=== PATIENT | male | born 1945 | race Caucasian/White ===

== ENCOUNTER 2017-09-10 10:20 | Observation (INO) ==
--- NOTE | 2017-09-10 10:52 | Emergency Department Report ---
General Adult HPI - General Chief complaint: Fever Stated complaint: weak, diff urinating, cough Time Seen by Provider: 09/10/17 10:52 Source: patient, family Mode of arrival: ambulatory - History of Present Illness HPI narrative: Patient is a 72 year old male patient of Dr Car and Dr Garza who presents to the ED with a 2-3 day hx of not "feeling well and weakness " Patients recent history includes complaints of some generalized difficulty breathing in early August when he initially went to see his PCP. An xray was done at that time and patient was scheduled to see Dr Garza. Shortly after that initial appt with Dr Car, patient and his went on a trip to [place] and then [place] . Patient apparently saw Dr Car last week due to a cough and was given rx for inhaler. Patient continued to feel worse as the week went on with worsening coughing and the frequent need to void. Pt is normally very active and has been very sedentary the past few days due to weakness. Patient appears very weak, is moaning in bed with his eyes closed for the most of the time. Will open eyes and answer questions appropriately at times, but provides the majority of the information Patient complains of pain stating its exacerbation of chronic knee and back pain. Denies chest pain or abdominal pain. thinks that the patients fever has been present the past couple of days but has been subjective. reports recent cardiac exam by Dr Garza with the past week or so including a stress test which was ineffective due to knee pain. He then underwent an echocardiogram which his states was "okay". Patient is scheduled for a cardiac cath in 2 weeks due to concern for a blockage. Patient has had no prior stenting. Dr Garza did stop patients digoxin which he had been on for about 10 years because he felt it wasn't needed. According to patients , he had been started on dig with an episode of tachycardia and has never had the diagnosis of atrial fib according to patient or . It has just been a few days that he has stopped the dig. Patients fever upon arrival is 102. Reports productive cough and urinary sx. complaint: fever - Related Data Home Medications Medication Instructions Recorded Confirmed Escitalopram Oxalate [Lexapro] 10 mg PO DAILY #0 10/10/09 09/10/17 Tamsulosin HCl [Flomax] 1 tab PO HS #0 10/10/09 09/10/17 Multi-Vitamin Plain [Theragran] 1 tab PO DAILY 09/10/17 09/10/17 Allergies Allergy/AdvReac Type Severity Reaction Status Date / Time Cephalosporins Allergy Severe SWELLING Verified 02/21/11 06:50 Penicillins Allergy Severe SWELLING Verified 02/21/11 06:50 Review of Systems All systems: reviewed and negative except as stated Constitutional: Reports: as per HPI, fever, chills, weakness Eyes: Denies: eye pain, eye discharge ENT: Denies: ear pain, throat pain Cardiovascular: Reports: dyspnea on exertion. Denies: chest pain, palpitations , syncope Respiratory: Reports: as per HPI, cough, dyspnea. Denies: wheezes, hemoptysis Gastrointestinal: Reports: nausea, diarrhea. Denies: abdominal pain, vomiting Genitourinary: Reports: as per HPI, urgency, frequency Musculoskeletal: Reports: as per HPI, back pain, other (knee pain and back pain ; states is chronic ) Integumentary: Denies: rash Neurological: Denies: headache, paresthesias, confusion Psychiatric: Denies: anxiety, depression Hematological/Lymphatic: Denies: easy bleeding, easy bruising Allergic/Immunologic: Denies: facial swelling, urticaria PFSH Patient Stated Medical History Cardiac Arrhythmia Yes: TACHYCARDIA Physical Exam - Limitations Limitations: no limitations - General General appearance: alert, other (non toxic but does appear ill; keeping eyes closed during history but is oriented when verbalizes. ) - Normal Exams: Head:: Normocephalic without trauma Eyes:: Pupils are PERRLA w/ EOMI ENMT:: No facial trauma, nasal exudates, pharyngeal erythema Neck:: Full range of motion, without adenopathy Cardiovascular:: Regular rate and rhythm, without murmur or gallop, capillary refill Abdomen:: Bowel sounds positive, soft, non-tender, non-distended Lymphatic:: No lymphadenopathy, or lymphedema noted Integumentary:: No rashes, hives - Expanded Respiratory Exam Location: Left: decreased breath sounds (poor inspiratory effort ), Right: decreased breath sounds, Upper: decreased breath sounds, Lower: decreased breath sounds - Neurological Exam Neurological exam: Present: oriented X3, CN II-XII intact - Expanded Neurological Exam Patient oriented to: Present: person, place, time Speech: Present: fluid speech Motor strength - LUE: 5/5 Motor strength - RUE: 5/5 Motor strength - LLE: 5/5 Motor strength - RLE: 5/5 - Psychiatric Psychiatric exam: Present: other (withdrawn at times due to "feeling so awful" Is not confused and answers history appropriately ) Course Course Narrative: Patient continues to sleep most of ER stay. Arouses easily to name and is appropriate. No indications of sepsis at this time. VSS; lab work is unremarkable. XRay does indicate right perihilar infiltrate and patient is influenza B positive. Discussed admission with Dr Whipple who does accept patient . will start tamiflu but will hold antibiotics for now per her request. Patient is allergic to cephalosporins. - Consultations Consultation #1: Dr Whipple Time: 12:27 (will admit; outpatient ) Vital Signs Temperature 102 F H 09/10/17 10:25 Pulse Rate 90 09/10/17 10:25 Respiratory Rate 20 09/10/17 10:25 Blood Pressure 147/69 H 09/10/17 10:25 Pulse Oximetry 94 09/10/17 10:25 Temperature 102.3 F H 09/10/17 12:11 Pulse Rate 94 09/10/17 12:23 Respiratory Rate 23 09/10/17 12:23 Blood Pressure 130/72 09/10/17 12:23 Pulse Oximetry 92 09/10/17 12:23 Medical Decision Making - Lab Data Result diagrams: 09/10/17 11:18 09/10/17 11:18 Lab Results 09/10/17 09/10/17 09/10/17 Range/Units 11:12 11:18 11:18 WBC 8.9 (4.5-11.0) T/MM3 RBC 4.83 (4.50-5.90) M/MM3 Hgb 14.9 (13.5-17.5) GM/DL Hct 43.6 (41-53) % MCV 90.3 (80-100) UM3 MCH 30.8 (26-34) UUG MCHC 34.2 (31-37) GM/DL RDW Std Deviation 43.4 (36.9-50.2) FL Plt Count 219 (130-400) T/MM3 MPV 10.7 (9.4-12.4) UM3 Immature Gran % (Auto) 0.2 (0.0-0.5) % Neut % (Auto) 83.1 H (33-66) % Lymph % (Auto) 6.9 L (23-45) % [place] % (Auto) 9.4 H (0-9.0) % Eos % (Auto) 0.3 (0-4) % Baso % (Auto) 0.1 (0-2) % Neut # (Auto) 7.4 (1.8-7.7) T/MM3 Lymph # (Auto) 0.6 L (1-4.8) T/MM3 [place] # (Auto) 0.8 (0-0.8) T/MM3 Eos # (Auto) 0.0 (0-0.5) T/MM3 Baso # (Auto) 0.0 (0-0.2) T/MM3 Abs Immat Gran (auto) 0.02 (0.00-0.03) T/MM3 Turbidity < 20 (0-20) Sodium 139 (134-144) MEQ/L Potassium 4.3 (3.6-5) MEQ/L Chloride 100 (98-107) MEQ/L Carbon Dioxide 25 (22-30) MEQ/L Anion Gap 14 (5-15) MEQ/L BUN 15.0 (9-20) MG/DL Creatinine 1.1 (0.8-1.5) mg/dL GFR Calculation 65 BUN/Creatinine Ratio 14 (6-26) RATIO Glucose 104 (75-110) MG/DL Calculated Osmolality 269 (261-280) MOSM/KG Calcium 9.1 (8.4-10.2) MG/DL Total Bilirubin 0.50 (0.20-1.30) MG/DL Icterus Index < 2 (0-7) AST 32 (17-59) U/L ALT 30 (1-50) U/L Alkaline Phosphatase 102 (38-126) U/L Troponin I < 0.012 (0-0.12) ng/ml Total Protein 7.8 (6.3-8.2) g/dL Albumin 4.6 (3.5-5.0) g/dL Globulin 3.2 (2.4-3.6) G/DL Albumin/Globulin Ratio 1.4 (1.1-2.2) RATIO Plasma Lactate 1.8 (0.6-2.2) MMOL/L Procalcitonin NG/ML Specimen Hemolysis < 15 (0-25) Ur Collection Type Urine Color (YELLOW) Urine Clarity Urine pH (5.0-8.0) Ur Specific [place] (1.015-1.025) Urine Protein (NEGATIVE) Urine Glucose (UA) (NEGATIVE) Urine Ketones (NEGATIVE) Urine Occult Blood (NEGATIVE) Urine Nitrate (NEGATIVE) Urine Bilirubin (NEGATIVE) Urine Urobilinogen (NORMAL) EU/DL Ur Leukocyte Esterase (NEGATIVE) Urinalysis Comment Influenza Type A (PCR) Negative (Negative) Influenza Type B (PCR) Positive A* (Negative) 09/10/17 09/10/17 Range/Units 11:18 11:33 WBC (4.5-11.0) T/MM3 RBC (4.50-5.90) M/MM3 Hgb (13.5-17.5) GM/DL Hct (41-53) % MCV (80-100) UM3 MCH (26-34) UUG MCHC (31-37) GM/DL RDW Std Deviation (36.9-50.2) FL Plt Count (130-400) T/MM3 MPV (9.4-12.4) UM3 Immature Gran % (Auto) (0.0-0.5) % Neut % (Auto) (33-66) % Lymph % (Auto) (23-45) % [place] % (Auto) (0-9.0) % Eos % (Auto) (0-4) % Baso % (Auto) (0-2) % Neut # (Auto) (1.8-7.7) T/MM3 Lymph # (Auto) (1-4.8) T/MM3 [place] # (Auto) (0-0.8) T/MM3 Eos # (Auto) (0-0.5) T/MM3 Baso # (Auto) (0-0.2) T/MM3 Abs Immat Gran (auto) (0.00-0.03) T/MM3 Turbidity (0-20) Sodium (134-144) MEQ/L Potassium (3.6-5) MEQ/L Chloride (98-107) MEQ/L Carbon Dioxide (22-30) MEQ/L Anion Gap (5-15) MEQ/L BUN (9-20) MG/DL Creatinine (0.8-1.5) mg/dL GFR Calculation BUN/Creatinine Ratio (6-26) RATIO Glucose (75-110) MG/DL Calculated Osmolality (261-280) MOSM/KG Calcium (8.4-10.2) MG/DL Total Bilirubin (0.20-1.30) MG/DL Icterus Index (0-7) AST (17-59) U/L ALT (1-50) U/L Alkaline Phosphatase (38-126) U/L Troponin I (0-0.12) ng/ml Total Protein (6.3-8.2) g/dL Albumin (3.5-5.0) g/dL Globulin (2.4-3.6) G/DL Albumin/Globulin Ratio (1.1-2.2) RATIO Plasma Lactate (0.6-2.2) MMOL/L Procalcitonin 0.05 NG/ML Specimen Hemolysis (0-25) Ur Collection Type Urine, void-cc/notcc Urine Color Yellow (YELLOW) Urine Clarity Clear Urine pH 6.0 (5.0-8.0) Ur Specific [place] 1.010 L (1.015-1.025) Urine Protein Negative (NEGATIVE) Urine Glucose (UA) Negative (NEGATIVE) Urine Ketones Negative (NEGATIVE) Urine Occult Blood Negative (NEGATIVE) Urine Nitrate Negative (NEGATIVE) Urine Bilirubin Negative (NEGATIVE) Urine Urobilinogen 0.2 (NORMAL) EU/DL Ur Leukocyte Esterase Negative (NEGATIVE) Urinalysis Comment Microscopic not ind. Influenza Type A (PCR) (Negative) Influenza Type B (PCR) (Negative) Disposition Clinical Impression: Influenza B Pneumonia Qualifiers: Pneumonia type: due to unspecified organism Laterality: right Lung location: lower lobe of lung Qualified Code(s): J18.1 - Lobar pneumonia, unspecified organism Disposition: 02 Acute Care Hosp, Other Condition: Stable Prescriptions: No Action Tamsulosin HCl [Flomax] 1 tab PO HS #0 Multi-Vitamin Plain [Theragran] 1 tab PO DAILY Escitalopram Oxalate [Lexapro] 10 mg PO DAILY #0 Referrals: Evita Car MD [Family Provider] - Time of Disposition: 12:34 - Seen By: midlevel
[2017-09-10] MEDS ORDERED: SALINE FLUSH 10ml SYRINGE IVF PRN (10:53)
[2017-09-10] MEDS ORDERED: ACETAMINOPHEN 500 MG TABLET PO ONE (10:53)
[2017-09-10] MEDS ORDERED: NS 1,000 ML IV ONE (10:53)
--- NOTE | 2017-09-10 13:33 | History & Physical Report ---
History of Present Illness Date: 09/10/17 Chief complaint: fatigue, cough, fever HPI: Patient is a very pleasant 72-year-old male who presented to the emergency room today with fever, chills and cough. His symptoms started the morning of 09/08 with fatigue and generally just not feeling well. The following day he started coughing. Symptoms of body aches, headache cough and fever continue. He tested positive for influenza B in the emergency room. Remainder of his testing was essentially negative other than a possible right infiltrate seen on chest x- ray. He is generally very healthy and active and golfs and bowls regularly. Lives independently at home with his . Review of Systems All systems PM: 10-point ROS was reviewed, no additional remarkable complaints except (fever, cough, body aches, headache, fatigue) Past Medical History Medical History: Medical History (Last Updated 09/10/17 @ 13:59 by RICHARD Nuñez) Anxiety BPH (benign prostatic hyperplasia) Cervical stenosis of spine History of GI bleed Surgical History: vasectomy, cervical spine fusion (2009) Family History: Father- of lymphoma Mother- of complications secondary to back surgery Family History: As Above - Social History Smoking status: Former smoker (quit smoking pipe in 2009) Substance use type: does not use Housing: house Household members: spouse Current occupational status: retired Social history: PCP-Dr. Car Rattling Machine Tender-Dr. Rodriguez Medications Home Medications Medication Instructions Recorded Confirmed Type Escitalopram Oxalate [Lexapro] 10 mg PO DAILY #0 10/10/09 09/10/17 History Tamsulosin HCl [Flomax] 1 tab PO HS #0 10/10/09 09/10/17 History Multi-Vitamin Plain [Theragran] 1 tab PO DAILY 09/10/17 09/10/17 History Allergies Allergy/AdvReac Type Severity Reaction Status Date / Time Cephalosporins Allergy Severe SWELLING Verified 02/21/11 06:50 Penicillins Allergy Severe SWELLING Verified 02/21/11 06:50 Exam Vital Signs: Temperature 102.3 F H 09/10/17 12:11 Pulse Rate 94 09/10/17 12:23 Respiratory Rate 23 09/10/17 12:23 Blood Pressure 130/72 09/10/17 12:23 Pulse Oximetry 92 09/10/17 12:23 Height/Weight/BMI: Height 1.7 m Weight 82.8 kg Body Mass Index 28.5 - Constitutional Present: mild distress, well nourished, well developed - Routine HEENT Exam Head: Present: normocephalic, atraumatic Eye: Present: EOMI, PERRL ENT: Present: mucous membranes moist, oropharynx clear - Routine Neck Exam Present: supple. Absent: lymphadenopathy, thyromegaly - Routine Respiratory Exam Present: CTA bilaterally. Absent: wheezes - Routine Cardiovascular Exam Present: RRR, no murmur - Routine Abdominal Exam Present: soft, normoactive bowel sounds. Absent: tenderness, distended - Routine Extremities Exam Present: no edema, normal capillary refill - Routine Skin Exam Present: dry, warm - Routine Neurological Exam Present: alert, oriented X3, CN II-XII intact - Routine Psychiatric Exam Present: normal affect, cooperative Results - Labs CBC & Chem 7: 09/10/17 11:18 04 11:18 Labs: Laboratory Tests 09/10/17 09/10/17 11:18 11:18 Troponin I < 0.012 Plasma Lactate 1.8 Procalcitonin 0.05 Laboratory Tests 09/10/17 11:12 Influenza Type B (PCR) Positive A* - ECG Data Tracing #1 NSR - Imaging and Cardiology Chest x-ray Additional comments: possible R infiltrate Assessment and Plan (1) Influenza B Current visit: Yes Status: Acute Assessment and Plan: Assessment Fever, cough, weakness secondary to Influenza B Sepsis - SIRS: fever, tachycardia/tachypnea. Source: pulmonary/influenza B. Chronic conditions Cervical spine stenosis Anxiety History of GI bleed (2010) BPH Plan Admit, OBS IVF's - 1 L bolused in ER. Continue at 100cc's/hr Tamiflu initiated in ER. Continue. Start Duonebs and acapella for pulmonary toilet. Mucinex DM, Tessalon Perles for cough. Tylenol for fever/pain. [place] or morphine available PRN pain not controlled w/ Tylenol. (Avoid NSAIDs given h/o GI bleed) Hold off on antibiotics at this time as clinically his condition is consistent with influenzal infection. Repeat labs in a.m. Continue home meds of tamsulosin, , Lexapro and multivitamin. OT/PT to evaluate and treat CODE STATUS: Full code Care to return to Dr. Car upon dismissal DVT Prophylaxis: SCD's Resuscitation Status: Full Code - Physician Narrative Physician: Linda Whipple MD Narrative: Date: 09/10/17 Time: 1520 I have independently evaluated and examined this patient. I reviewed the chart, the patient's history, and the FLOOR SURFACER/PA's documented findings as above. We discussed and formulated the assessment and plan as above with additions as below: Mr. Montoya describes increasing nonproductive cough with fever, myalgias, arthralgias, and generalized fatigue/progressive weakness over the past 48 hours. Evaluation in the emergency room revealed no hypoxia and initially questioned right donte-infiltrate although I really don't see any indication of pneumonia reviewing the film. Laboratory data is unremarkable as described above. NAD, appears fatigued, O2 saturation 94% on room air Minor arthralgias but no acute synovitis Sclera anicteric, conjunctiva clear, neck supple Respirations nonlabored, faint expiratory wheezing present, no rhonchi/crackles present-anterior/posterior lung coffman evaluated Regular rhythm, S1-S2 Presentation consistent with acute influenza B; I don't appreciate infiltrate on my review of chest x-ray and do not believe antibiotics indicated. Symptomatic management as above with IV fluids, Tylenol, Tamiflu, and breathing treatments. Discussed with ER provider; old records reviewed. Hospital Course Summary Disclaimer: The visit summary below is not to be considered part of the above Progress Note. Hospital Course: 09/10/17-hospital admission for observation Admit, OBS IVF's - 1 L bolused in ER. Continue at 100cc's/hr Tamiflu initiated in ER. Continue. Start Duonebs and acapella for pulmonary toilet. Mucinex DM, Tessalon Perles for cough. Tylenol for fever/pain. [place] or morphine available PRN pain not controlled w/ Tylenol. (Avoid NSAIDs given h/o GI bleed) Hold off on antibiotics at this time as clinically his condition is consistent with influenzal infection. Repeat labs in a.m. Continue home meds of tamsulosin, , Lexapro and multivitamin. OT/PT to evaluate and treat CODE STATUS: Full code Care to return to Dr. Car upon dismissal
[2017-09-10] MEDS ORDERED: MORPHINE SULFATE 2mg INJECTION IVP PRN (14:08)
[2017-09-10] MEDS ORDERED: GUAIFENESIN/DM 5ml ORAL LIQUID PO PRN (14:08)
[2017-09-10] MEDS ORDERED: ACETAMINOPHEN 325 MG TABLET PO PRN (14:09)
[2017-09-10] MEDS ORDERED: ONDANSETRON 4 MG/2 ML INJECTION IVP PRN (14:09)
[2017-09-10] MEDS ORDERED: HYDROCODONE/APAP 5mg/325mg TABLET PO PRN (14:11)
[2017-09-10] MEDS ORDERED: BENZONATATE 200 MG CAPSULE PO PRN (14:13)
[2017-09-10] MEDS ORDERED: HYDROCODONE/CHLORPHENIRAMINE ER ORAL LIQ 5ml PO PRN (14:59)
--- NOTE | 2017-09-10 15:01 | XRay Report ---
Indication: fever, cough PROCEDURE: XR chest 1V: Encounter: Initial Comparison: August 15, 2017 FINDINGS: The lungs are clear. There is no abnormal airspace opacity, pleural effusion or pneumothorax identified. The heart size, pulmonary vasculature and mediastinum are within normal limits. No significant skeletal abnormality is seen. IMPRESSION: No acute cardiopulmonary abnormality. .
[2017-09-10] MEDS: ALBUTEROL/IPRATROPIUM 2.5mg-0.5mg/3ml NEB AEROSOL SCH ×2 (15:18→19:18)
[2017-09-10] MEDS ORDERED: PNEUMOCOCCAL 13 VACCINE 0.5ml INJECTION IM ONE (15:48)
[2017-09-10] MEDS ORDERED: INFLUENZA VAC High Dose 2017-18 (Fluzone HD*) (>=65yo) 0.5ml IM ONE (15:48)
[2017-09-10] MEDS: NS 1,000 ML IV SCH (16:23)
[2017-09-10] MEDS ORDERED: IBUPROFEN 400 MG TABLET PO PRN (18:36)
[2017-09-10] MEDS: TAMSULOSIN 0.4 MG CAPSULE PO SCH (20:33)
[2017-09-10] MEDS: GUAIFENESIN/D-METHORPHAN 600mg/30mg TABLET PO SCH (20:33)
[2017-09-10] MEDS: ACETAMINOPHEN 325 MG TABLET PO SCH (23:51)
[2017-09-11] MEDS: NS 1,000 ML IV SCH (02:15)
[2017-09-11] MEDS: ACETAMINOPHEN 325 MG TABLET PO SCH ×4 (04:49→20:00)
[2017-09-11] MEDS: ALBUTEROL/IPRATROPIUM 2.5mg-0.5mg/3ml NEB AEROSOL SCH ×4 (06:45→19:47)
--- NOTE | 2017-09-11 09:10 | Progress Note ---
- Date 09/11/17 Subjective: Patient is seen this morning resting in bed. He reports that he is feeling better. He is more congested in his sinuses and feels things in his chest are loosening up. He did have some diarrhea this morning. (No diarrhea prior to admission.) No longer running a fever. Body aches have improved. Headache is almost resolved. Continues to have pain in his left knee which is chronic for him. Objective Vital signs: Temperature 98.0 F 09/10/17 23:51 Pulse Rate 74 09/10/17 23:51 Respiratory Rate 20 09/11/17 06:40 Blood Pressure 113/60 09/10/17 23:51 Pulse Oximetry 97 09/11/17 06:40 Height/Weight/BMI: Height 1.7 m Weight 82.8 kg Body Mass Index 28.5 - Constitutional Present: no acute distress, well nourished, well developed - Routine HEENT Exam Head: Present: normocephalic, atraumatic - Routine Respiratory Exam Absent: wheezes Comments: Slightly coarse right mid lung posteriorly - Routine Cardiovascular Exam Present: RRR, no murmur - Routine Abdominal Exam Present: soft, non distended, non tender - Routine Extremities Exam Present: no edema, normal capillary refill - Routine Skin Exam Present: dry, warm - Routine Neurological Exam Present: alert, oriented X3 - Routine Lymphatic Exam Lymphatic: Absent: adenopathy - Routine Psychiatric Exam Present: normal affect, cooperative Results - Labs CBC & Chem 7: 09/11/17 04:16 09/11/17 04:16 Assessment and Plan (1) Influenza B Current visit: Yes Status: Acute Assessment and Plan: Assessment Fever, cough, weakness secondary to Influenza B Sepsis - SIRS: fever, tachycardia/tachypnea. Source: pulmonary/influenza B. Hypokalemia-not POA Chronic conditions Cervical spine stenosis Anxiety History of GI bleed (2010) BPH Plan Continue Tamiflu (day #2), DuoNeb's, Mucinex DM and Acapella. Potassium 20 mEq given 1 for mild hypokalemia. DC IV fluids. Nurse noted apneic episodes up to 10+ seconds. Would recommend OP sleep study. DVT Prophylaxis: SCD's Resuscitation Status: Full Code - Physician Narrative Physician: Linda Whipple MD Narrative: Date: 09/11/17 Time: 1450 I have independently evaluated and examined this patient. I reviewed the chart, the patient's history, and the FREIGHT ASSOCIATE/PA's documented findings as above. We discussed and formulated the assessment and plan as above with additions as below: Mr. Montoya reports resolution of fever overnight and reduction in cough but several stools today and a large liquid stool last night resulting in persistent sensation of being wiped out. Respirations nonlabored, good airflow, breath sounds are clear Regular rhythm, benign abdomen Diarrhea new since hospitalized and initiation of Tamiflu, has received first dose of Imodium within the past hour and will reassess to determine if combined respiratory and GI symptoms can be managed allowing continuation of the antiviral or if it will need to be discontinued and all care focus on symptom management. Resume IV fluids at present to minimize risk of dehydration. Unclear the patient will be able to discharge at this time. Hospital Course Summary Disclaimer: The visit summary below is not to be considered part of the above Progress Note. Hospital Course: 09/10/17-hospital admission for observation Admit, OBS IVF's - 1 L bolused in ER. Continue at 100cc's/hr Tamiflu initiated in ER. Continue. Start Duonebs and acapella for pulmonary toilet. Mucinex DM, Tessalon Perles for cough. Tylenol for fever/pain. [place] or morphine available PRN pain not controlled w/ Tylenol. (Avoid NSAIDs given h/o GI bleed) Hold off on antibiotics at this time as clinically his condition is consistent with influenzal infection. Repeat labs in a.m. Continue home meds of tamsulosin, , Lexapro and multivitamin. OT/PT to evaluate and treat CODE STATUS: Full code Care to return to Dr. Car upon dismissal 09/11/17 Continue Tamiflu (day #2), DuoNeb's, Mucinex DM and Acapella. Potassium 20 mEq given 1 for mild hypokalemia. DC IV fluids. Nurse noted apneic episodes up to 10+ seconds. Would recommend OP sleep study. Addendum entered and electronically signed by RICHARD Nuñez 09/11/17 13:38 : Nurse reports pt had 2 diarrheal stools overnight and one this am and one this afternoon. Suspect this is s.e. to Tamiflu. Give Imodium 4mg now and order given for 2 mg prn.
[2017-09-11] MEDS: GUAIFENESIN/D-METHORPHAN 600mg/30mg TABLET PO SCH ×2 (10:18→20:03)
[2017-09-11] MEDS: ESCITALOPRAM 10 MG TABLET PO SCH (10:19)
[2017-09-11] MEDS: MULTI-VITAMIN PLAIN TABLET PO SCH (10:19)
[2017-09-11] MEDS ORDERED: LOPERAMIDE 1 mg/5 mL ORAL LIQUID PO ONE (13:18)
[2017-09-11] MEDS ORDERED: LOPERAMIDE 2 MG CAPSULE PO PRN (13:20)
[2017-09-11] MEDS ORDERED: LOPERAMIDE 2 MG CAPSULE PO ONE (13:23)
[2017-09-11 14:34] VITALS: BMI 53.6
[2017-09-11] MEDS: NS with KCL 20 mEq 1,000 ML IV SCH (15:58)
[2017-09-11] MEDS ORDERED: INFLUENZA VAC. INJ. ADMIN CHARGE INJ ONE (19:54)
[2017-09-11] MEDS ORDERED: PNEUMOCOCCAL VAC ADMIN CHARGE INJ ONE (19:55)
[2017-09-11] MEDS: TAMSULOSIN 0.4 MG CAPSULE PO SCH (20:04)
[2017-09-12] MEDS: ACETAMINOPHEN 325 MG TABLET PO SCH ×3 (00:41→09:23)
[2017-09-12] MEDS: NS with KCL 20 mEq 1,000 ML IV SCH ×2 (02:03→13:22)
[2017-09-12 07:50] VITALS: BP 138/75; PULSE 80; TEMP 98.1
--- NOTE | 2017-09-12 08:36 | XRay Report ---
Indication: cough PROCEDURE: XR chest 1V: Encounter: Initial Comparison: September 10, 2017 FINDINGS: The lungs are clear. There is no abnormal airspace opacity, pleural effusion or pneumothorax identified. The heart size, pulmonary vasculature and mediastinum are within normal limits. No significant skeletal abnormality is seen. IMPRESSION: No acute cardiopulmonary abnormality. .
[2017-09-12] MEDS: ALBUTEROL/IPRATROPIUM 2.5mg-0.5mg/3ml NEB AEROSOL SCH (09:00)
[2017-09-12 09:12] VITALS: RESP 16; O2SAT 98
[2017-09-12] MEDS: ESCITALOPRAM 10 MG TABLET PO SCH (09:23)
[2017-09-12] MEDS: MULTI-VITAMIN PLAIN TABLET PO SCH (09:23)
[2017-09-12] MEDS: GUAIFENESIN/D-METHORPHAN 600mg/30mg TABLET PO SCH (09:24)
--- NOTE | 2017-09-12 11:14 | Discharge Summary ---
Discharge Information Date of admission: 09/10/17 13:02 Anticipated date of discharge: 09/12/17 Attending Physician: Linda Whipple MD Primary care physician: Evita Car MD - Discharge Diagnosis (1) Influenza B Status: Acute Influenza B Sepsis - SIRS: fever, tachycardia/tachypnea. Source: pulmonary/influenza B. Hypokalemia-not POA Diarrhea Chronic conditions Cervical spine stenosis Anxiety History of GI bleed (2010) BPH - Laboratory Labs: 09/11/17 04:16 09/12/17 04:04 Positive influenza B Negative GI panel Urinalysis negative - Microbiology Negative blood cultures to date. - Radiology Radiology: Date of Exam: 09/12/17 Indication: cough PROCEDURE: XR chest 1V: FINDINGS: The lungs are clear. There is no abnormal airspace opacity, pleural effusion or pneumothorax identified. The heart size, pulmonary vasculature and mediastinum are within normal limits. No significant skeletal abnormality is seen. IMPRESSION: No acute cardiopulmonary abnormality. History of Present Illness HPI: Patient is a very pleasant 72-year-old male who presented to the emergency room today with fever, chills and cough. His symptoms started the morning of 09/08 with fatigue and generally just not feeling well. The following day he started coughing. Symptoms of body aches, headache cough and fever continue. He tested positive for influenza B in the emergency room. Remainder of his testing was essentially negative other than a possible right infiltrate seen on chest x- ray. He is generally very healthy and active and golfs and bowls regularly. Lives independently at home with his . Objective Vital signs: Temperature 98.1 F 09/12/17 07:00 Pulse Rate 80 09/12/17 07:00 Respiratory Rate 16 09/12/17 09:00 Blood Pressure 138/75 09/12/17 07:00 Pulse Oximetry 98 09/12/17 09:00 Height/Weight/BMI: Height 1.7 m Weight 82.1 kg Body Mass Index 53.6 - Constitutional Present: no acute distress, well nourished, well developed - Routine HEENT Exam Head: Present: normocephalic, atraumatic - Routine Respiratory Exam Present: CTA bilaterally. Absent: wheezes - Routine Cardiovascular Exam Present: RRR, no murmur - Routine Abdominal Exam Present: soft, non distended, non tender - Routine Extremities Exam Present: no edema, normal capillary refill - Routine Skin Exam Present: dry, warm - Routine Neurological Exam Present: alert, oriented X3 - Routine Lymphatic Exam Lymphatic: Absent: adenopathy - Routine Psychiatric Exam Present: normal affect, cooperative Hospital Course This is a general summary of the patient's hospital course. For more details refer to the complete medical record. Hospital course: 09/10/17-hospital admission for observation Admit, OBS IVF's - 1 L bolused in ER. Continue at 100cc's/hr Tamiflu initiated in ER. Continue. Start Duonebs and acapella for pulmonary toilet. Mucinex DM, Tessalon Perles for cough. Tylenol for fever/pain. Icard or morphine available PRN pain not controlled w/ Tylenol. (Avoid NSAIDs given h/o GI bleed) Hold off on antibiotics at this time as clinically his condition is consistent with influenzal infection. Repeat labs in a.m. Continue home meds of tamsulosin, , Lexapro and multivitamin. OT/PT to evaluate and treat CODE STATUS: Full code Care to return to Dr. Car upon dismissal 09/11/17 Continue Tamiflu (day #2), DuoNeb's, Mucinex DM and Acapella. Potassium 20 mEq given 1 for mild hypokalemia. Patient is having diarrhea. Stool panel negative. Patient started on Imodium. Continue IV fluids and monitor electrolytes given the diarrhea. 09/12/17 No stool since last evening. Patient is feeling stronger. He is ready to go home. Vitals and labs are stable. Discussed with patient the Tamiflu could be causing the diarrhea. He took his fifth dose this morning. If he continues to have diarrhea, would not continue Tamiflu. He has a nebulizer at home, will prescribe albuterol to use per nebulizer up to 3-4 times a day PRN. Patient reports he was recently prescribed Spiriva by Dr. Car. He will resume this. Follow-up in a week with Dr. Car. Time spent with patient: discharge greater than 30 minutes Resuscitation Status: Full Code Discharge Plan - Discharge Disposition Discharge Date: 09/12/17 Disposition: Discharged Home, Self-Care *Condition: Stable Reason For Visit (Visit label in EMR): Influenza B - Discharge Medications *Discharge Medications: New Albuterol Neb (0.083%) [Proventil Neb (0.083%)] 2.5 mg AEROSOL Q4H PRN #30 vial PRN Reason: wheeze/SOA Oseltamivir Cap [Tamiflu] 75 mg PO BID #5 cap Benzonatate [Tessalon Perles] 200 mg PO TID PRN #20 cap PRN Reason: Cough Hydrocodone/Chlorphen Oral Liq [Tussionex] 5 ml PO BID PRN #4 oz PRN Reason: Cough Loperamide [Imodium] 2 mg PO PRN PRN cap PRN Reason: Diarrhea Continue Tamsulosin HCl [Flomax] 1 tab PO HS #0 Multi-Vitamin Plain [Theragran] 1 tab PO DAILY Escitalopram Oxalate [Lexapro] 10 mg PO DAILY #0 - Discharge Packet/Instructions *Diet: Regular diet *Activity: As tolerated *Pain Management/Treatment: Tylenol as needed *Wound Care: n/a Additional Instructions: Use imodium if needed for diarrhea. If you have significant diarrhea today, do not continue the Tamiflu. *Expected Signs/Symptoms: Gradual improvement *Notify Physician if: You have worsening cough, shortness of breath or fever *During Business Hours Contact: Dr. Car's office *After Business Hours Contact: [facility] and have your provider paged *Pending Lab/Results: No Pending Lab - Referrals/Follow Up *Referrals/Follow Up: Evita Car MD [Family Provider] - 1 Week (APPOINTMENT ON 09/19 11:30. ) - Patient Handouts Patient Handouts: Influenza (IP) - Dismissal Complete Discharge Instructions are:: Complete Physician Narrative - Narrative Attestation Narrative: Date: 09/12/17 Time: 1330 I have independently evaluated and examined this patient. I reviewed the chart, the patient's history, and the HEAD WAITER/WAITRESS BANQUET/PA's documented findings as above. We discussed and formulated the assessment and plan as above with additions as below: Mr. De La Torre reports feeling significantly improved this morning with resolution of diarrhea and dyspnea. Minimal cough persists but his chest does not feel congested. Respirations are nonlabored and breath sounds are clear; abdomen is benign. Chest x-ray was reviewed by myself demonstrating clear lung coffman. Stable for discharge with follow-up as above. Cough suppressants reviewed with patient-prescriptions for Tessalon Perles and Tussionex syrup available.
== END 2017-09-12 12:29 | disposition home or self-care (01) ==
LOC: MED 10:20 → ED 10:20 → MED 13:24
PROVIDERS: ADMIT Internal Medicine; ATTEND Internal Medicine